=== PATIENT | male | born 1985 | race Caucasian/White ===

== ENCOUNTER 2016-06-04 06:09 | Emergency (ER) | payer OTHER ==
[~2016-06-04] VITALS: Ht 180.3 cm; Wt 109.0 kg
[~2016-06-04 06:09] MED LIST: AMO500 PO; CIPR500T4 PO; IBUP-1542 PO
[2016-06-04 06:10] VITALS: Ht 180.3 cm; Wt 109.0 kg
[2016-06-04] MEDS ORDERED: PRED20TA PO (06:54)
[2016-06-04] MEDS ORDERED: PEN500 PO (06:54)
[2016-06-04] MEDS ORDERED: IBUP800T25 PO (06:54)
[2016-06-04] MEDS ORDERED: CEFTRIAXONE 1 GM INJ IM ONE (07:00)
[2016-06-04] MEDS ORDERED: predniSONE 20 MG TAB PO ONE (07:00)
[2016-06-04] MEDS ORDERED: LIDOCAINE 1% (MDV) 20 ML INJ SC ONE (07:00)
[2016-06-04] MEDS ORDERED: IBUPROFEN 800 MG TAB PO ONE (07:00)
--- NOTE | 2016-06-04 10:29 | ERD ---
DATE OF SERVICE: HISTORY OF PRESENT ILLNESS: The patient is a 30-year-old male coming in complaining of a sore throa t. Patient states he has had a sore throat with a fever for the last 3 days. He has taken DayQuil, Nyquil and Advil. He has had no cough, no runny nose. He states that he has no chest pain or shor tness of breath. Denies any headaches or neck stiffness. PAST MEDICAL HISTORY: Denies. ALLERGIES: DENIES ALLERGIES TO MEDICATIONS. SURGICAL HISTORY: Denies. SOCIAL HISTORY: Smokes 6 cigarettes a day. Drug use denies. Alcohol abuse. REVIEW OF SYSTEMS: A 12-point review of systems was done. Refer to HPI for positives, all other sy stems negative. PHYSICAL EXAMINATION VITAL SIGNS: Temperature is 98.5, pulse 99, blood pressure is 146/97, respiratory rate 18, O2 satur ation 97% on room air. Pain intensity is 7/10. GENERAL: The patient is well-appearing, well-nourished, no acute distress. HEENT: Atraumatic. Conjunctivae are pink. Pupils equal, round, and reactive to light. There is no s cleral icterus. The patient has erythematous tonsils bilaterally with mild exudate. Uvula is midli ne. There is no unilateral posterior fullness noted to the posterior oropharynx. Patient has posit asima cervical lymphadenopathy. TMs are within normal limits. No erythema, edema or bulging. NECK: C-spine is soft and supple. There is no meningismus. There is no cervical lymphadenopathy. No JVD. No bruits. No goiter. Normal nuchal rigidity. CHEST: Clear to auscultation bilaterally. There are no rales, wheezes or rhonchi. HEART: Regular rate and rhythm. No murmurs, clicks, rubs or gallops. No S3 or S4. ABDOMEN: Soft, nontender and nondistended. Good bowel sounds. No rebound or guarding. No gross mona tonitis. No gross organomegaly or masses. No Aaron sign or McBurney point tenderness. SKIN: There is no apparent rash or petechia. The skin is warm and dry. EMERGENCY ROOM COURSE: The patient was given IM injection of Rocephin in the ER. The patient was a lso given 60 mg of prednisone. DIAGNOSES: 1. Sore throat. 2. Documented fever at home. MEDICAL DECISION MAKING: I have low suspicion for peritonsillar retropharyngeal abscess. The patie nt's exam was not concerning. I have low suspicion for meningitis or sepsis, low suspicion for pneu monia, low suspicion for acute abdominal etiology. Patient will be treated with antibiotics and giv en strict ER precautions. DISCHARGE DISPOSITION: The patient is discharged stable. Patient given a prescription for predniso ne and penicillin and told to follow up with primary care within 1 to 2 days for reevaluation. Shyann ent was told if symptoms progress or worsen to return to the ER. All other questions answered at ti me of discharge. Discharge summary given at the time of departure. Patient understood and complied with plan. Dictated By: LORETTA SMITH PA for RENEE OROZCO/HENRI Conf#: [id number] DID#: [id number]
== END 2016-06-04 07:24 | disposition home or self-care (01) ==
LOC: FTE 06:09
DX: J02.9 Acute pharyngitis, unspecified (principal); F17.210 Nicotine dependence, cigarettes, uncomplicated; R50.9 Fever, unspecified
CPT/HCPCS: 96372; J0696; J7512; Z7502; Z7610

== ENCOUNTER 2017-04-30 10:02 | Emergency (ER) | payer OTHER ==
[~2017-04-30] VITALS: Ht 180.3 cm; Wt 113.3 kg
[~2017-04-30 10:02] MED LIST changes: -AMO500 PO; +AMOX500C2 PO; +IBUP800T25 PO; +PENI500T PO; +PRED20TA PO
[2017-04-30 10:03] VITALS: Ht 180.3 cm; Wt 113.3 kg
[2017-04-30] MEDS ORDERED: OPHTHALMIC IRRIG SOLUTION 120 ML LEFT EYE ONE (11:30)
[2017-04-30] MEDS ORDERED: ACET1TAB40 PO (12:11)
[2017-04-30] MEDS ORDERED: ERYT1OIN6 OP (12:11)
--- NOTE | 2017-04-30 12:19 | ERD ---
ER Documentation Chief Complaint Chief Complaint left eye pain/redness/drainage x this AM. UKN cause HPI This 31-year-old male complains sudden onset of pain in his left upper eyelid and eye this morning. Started while washing his face and cleaning in the bathroom. He is sensation of foreign body underneath his left eyelid. Denies contact lens use, visual changes or visual deficits or discharge. Denies use of machinery additional inciting event such as when her known potential foreign body. ROS All systems reviewed and are negative except as per history of present illness. Medications Home Meds Active Scripts Acetaminophen with Codeine (Acetaminophen-Cod #3 Tablet) 1 Each Tablet, 1 TAB PO Q6H Y for PAIN, #10 TAB Prov:SUZE BRIDGES MD 04/30/17 Erythromycin Base (Erythromycin) 1 Gm Oint...g., 1 GM OP QID for 7 Days Prov:SUZE BRIDGES MD 04/30/17 Prednisone* (Prednisone*) 20 Mg Tab, 40 MG PO DAILY for 4 Days, TAB Prov:AKIRA SMITH PA-C 06/04/16 Penicillin V Potassium* (Penicillin V K*) 500 Mg Tab, 500 MG PO BID for 10 Days , TAB Prov:AKIRA SMITH PA-C 06/04/16 Ibuprofen* (Motrin*) 800 Mg Tab, 800 MG PO Q6H Y for PAIN AND OR ELEVATED TEMP, #30 TAB Prov:AKIRA SMITH PA-C 06/04/16 Ciprofloxacin Hcl* (Ciprofloxacin Hcl*) 500 Mg Tablet, 500 MG PO BID for 10 Days , TAB Prov:ADIEL TOVAR PA-C 10/30/15 Ibuprofen* (Motrin*) 600 Mg Tab, 600 MG PO Q6, #15 TAB Prov:SUZE BRIDGES MD 10/06/15 Amoxicillin* (Amoxicillin*) 500 Mg Cap, 500 MG PO TID for 10 Days, CAP Prov:SUZE BRIDGES MD 10/06/15 Reported Medications [none] No Conflict Check 06/16/12 Allergies Allergies: Coded Allergies: No Known Allergy (Unverified , 04/30/17) PMhx/Soc Medical and Surgical Hx: pt denies Medical Hx, pt denies Surgical Hx History of Surgery: No Anesthesia Reaction: No Hx Neurological Disorder: No Hx Respiratory Disorders: No Hx Cardiac Disorders: No Hx Psychiatric Problems: No Hx Miscellaneous Medical Probl: No Hx Alcohol Use: No Hx Substance Use: No Hx Tobacco Use: Yes (8/day ) Smoking Status: Current every day smoker Physical Exam Vitals Vital Signs Date Time Temp Pulse Resp B/P Pulse Ox O2 Delivery O2 Flow Rate FiO2 04/30/17 10:03 97.9 85 18 134/89 98 Physical Exam Const: [] Alert, uncomfortable, [id number]. Head: Atraumatic Eyes: Some hyperemia of the left upper eye. Fluorescein test shows possible minimal uptake at 12:00 on the sclera but no dendritic lesions or obvious ulcers or abrasions. Visual acuity is normal bilaterally. ENT: Normal External Ears, Nose and Mouth. Neck: Full range of motion..~ No meningismus. Resp: Clear to auscultation bilaterally Cardio: Regular rate and rhythm, no murmurs Abd: Soft, non tender, non distended. Normal bowel sounds Skin: No petechiae or rashes Back: No midline or flank tenderness Ext: No cyanosis, or edema Neur: Awake and alert Psych: Normal Mood and Affect Results 24 hrs Current Medications Medications (Trade) Dose Ordered Sig/Yahir Route PRN Reason Start Time Stop Time Status Last Admin Dose Admin Irrigating Solution (Eye Wash) 1 applic ONCE ONCE LEFT EYE 04/30/17 11:30 04/30/17 11:31 DC Procedures/MDM Patient had relief with tetracaine drops. I was irrigated. Patient has persistent burning sensation in the left upper sclera. There is no foreign bodies or abnormalities on serial exam. Patient has left upper eyelid scleral burning of uncertain etiology without visualized foreign body or significant injury. History suggests possible chemical irritation possibly some some soap or something related to the patient washing his face. I am recommending ophthalmology evaluation today or tomorrow. There is no signs or symptoms to suggest globe rupture, foreign body, optic neuritis, retinal artery ischemia, orbital cellulitis cellulitis. Patient otherwise return to the ER for new or worsening symptoms otherwise ophthalmology as directed. Departure Diagnosis: Primary Impression: Eye problem Condition: Stable Patient Instructions: Conjunctivitis Caused by Irritation Referrals: [facility] Hours: Mon - Fri 9:00 AM - 5:00 PM Additional Instructions: Suspect possible chemical irritation. No evidence abnormality noted today. See his mental health coordinator today this week for further evaluation and treatment. Recheck otherwise for fevers, new symptoms. SUZE BRIDGES MD Apr 30, 2017 12:19
== END 2017-04-30 12:40 | disposition home or self-care (01) ==
LOC: FTE 10:02
DX: H57.12 Ocular pain, left eye (principal); F17.210 Nicotine dependence, cigarettes, uncomplicated
CPT/HCPCS: Z7502; Z7610; 99284

== ENCOUNTER 2018-12-10 09:33 | Emergency (ER) | payer OTHER ==
[~2018-12-10] VITALS: Ht 180.3 cm; Wt 110.0 kg
[~2018-12-10 09:33] MED LIST changes: +ACET1TAB40 PO; +ERYT1OIN6 OP; -IBUP800T25 PO; +IBUP800T48 PO; +ONDA4TAB14 PO; +OXYC-279 PO
[2018-12-10 09:36] VITALS: BP 133/94; PULSE 96; RESP 24; Ht 180.3 cm; Wt 110.0 kg
[2018-12-10] MEDS ORDERED: SOD CHLORIDE 0.9% 1,000 ML IV STA (09:47)
[2018-12-10] MEDS ORDERED: KETOROLAC 30 MG INJ IV STA (09:47)
[2018-12-10] MEDS ORDERED: morphine 4 MG/ML VIAL IV STA (09:47)
[2018-12-10] MEDS ORDERED: ONDANSETRON 4 MG INJ IV STA (09:47)
[2018-12-10] MEDS ORDERED: HYDROmorphONE 2 MG/ML SYG IV STA (10:14)
--- NOTE | 2018-12-10 11:58 | ERD ---
ER Documentation Chief Complaint Chief Complaint LEFT FLANK PAIN HPI Patient is a 33-year-old male who presents with severe left-sided flank pain that began today with associated nausea and vomiting. He does have a history of kidney stones and this feels similar. He denies any dysuria hematuria or frequency. No fevers. Has not taken any medications for his symptoms. ROS All systems reviewed and are negative except as per history of present illness. Medications Home Meds Active Scripts Ondansetron (Ondansetron Odt) 4 Mg Tab.rapdis, 4 MG PO Q6H PRN for NAUSEA AND/OR VOMITING, #20 TAB Prov:JIN ALATORRE PA-C 12/10/18 Oxycodone HCl/Acetaminophen (Percocet 5-325 mg Tablet) 1 Each Tablet, 1 EACH PO Q6, #20 TAB Prov:JIN ALATORRE PA-C 12/10/18 Acetaminophen with Codeine (Acetaminophen-Cod #3 Tablet) 1 Each Tablet, 1 TAB PO Q6H PRN for PAIN, #10 TAB Prov:SUZE BRIDGES MD 04/30/17 Erythromycin Base (Erythromycin) 1 Gm Oint...g., 1 GM OP QID for 7 Days Prov:SUZE BRIDGES MD 04/30/17 Prednisone* (Prednisone*) 20 Mg Tab, 40 MG PO DAILY for 4 Days, TAB Prov:AKIRA SMITH PA-C 06/04/16 Penicillin V Potassium* (Penicillin V K*) 500 Mg Tab, 500 MG PO BID for 10 Days, TAB Prov:AKIRA SMITH PA-C 06/04/16 Ibuprofen* (Motrin*) 800 Mg Tab, 800 MG PO Q6H PRN for PAIN AND OR ELEVATED TEMP, #30 TAB Prov:AKIRA SMITH PA-C 06/04/16 Ciprofloxacin Hcl* (Ciprofloxacin Hcl*) 500 Mg Tablet, 500 MG PO BID for 10 Days, TAB Prov:ADIEL TOVAR PA-C 10/30/15 Ibuprofen* (Motrin*) 600 Mg Tab, 600 MG PO Q6, #15 TAB Prov:SUZE BRIDGES MD 10/06/15 Amoxicillin* (Amoxicillin*) 500 Mg Cap, 500 MG PO TID for 10 Days, CAP Prov:SUZE BRIDGES MD 10/06/15 Reported Medications [none] No Conflict Check 06/16/12 Allergies Allergies: Coded Allergies: No Known Allergy (Unverified , 04/30/17) PMhx/Soc Medical and Surgical Hx: pt denies Medical Hx, pt denies Surgical Hx History of Surgery: No Anesthesia Reaction: No Hx Neurological Disorder: No Hx Respiratory Disorders: No Hx Cardiac Disorders: No Hx Psychiatric Problems: No Hx Miscellaneous Medical Probl: No Hx Alcohol Use: Yes Hx Substance Use: No Hx Tobacco Use: No (STOPPED LAST YEAR) Smoking Status: Former smoker FmHx Family History: No diabetes Physical Exam Vitals Vital Signs Date Temp Pulse Resp B/P (MAP) Pulse Ox O2 O2 Flow FiO2 Time Delivery Rate 12/10/18 97.2 96 24 133/94 97 09:36 (107) Physical Exam INITIAL VITAL SIGNS: Reviewed by me GENERAL: Awake, alert and oriented x 4, well appearing, nontoxic, speaking in full sentences. Moderate distress secondary to pain HEAD: Atraumatic NECK: Supple. No masses. Full range of motion. No meningismus. No midline tenderness. RESPIRATORY: Clear to auscultation bilaterally. Symmetric chest wall rise. No wheezing or rales. No accessory muscle use. CV: Regular rate and rhythm. No murmurs, rubs, or gallops. ABDOMEN: Soft, non-distended. Nontender. Negative [place]. Negative McBurneys point tenderness. Left sided CVA tenderness. No guarding. No rebound. Result Diagram: 12/10/18 0955 12/10/18 0955 Results 24 hrs Laboratory Tests Test 12/10/18 09:55 White Blood Count 9.4 10^3/ul Red Blood Count 4.92 10^6/ul Hemoglobin 15.8 g/dl Hematocrit 45.6 % Mean Corpuscular Volume 92.7 fl Mean Corpuscular Hemoglobin 32.1 pg Mean Corpuscular Hemoglobin Concent 34.6 g/dl Red Cell Distribution Width 12.0 % Platelet Count 273 10^3/UL Mean Platelet Volume 9.5 fl Immature Granulocytes % 0.400 % Neutrophils % 62.2 % Lymphocytes % 32.0 % Monocytes % 4.7 % Eosinophils % 0.4 % Basophils % 0.3 % Nucleated Red Blood Cells % 0.0 /100WBC Immature Granulocytes # 0.040 10^3/ul Neutrophils # 5.9 10^3/ul Lymphocytes # 3.0 10^3/ul Monocytes # 0.4 10^3/ul Eosinophils # 0.0 10^3/ul Basophils # 0.0 10^3/ul Nucleated Red Blood Cells # 0.0 10^3/ul Urine Color YELLOW Urine Clarity SLIGHTLY CLOUDY Urine pH 7.0 Urine Specific [place] 1.021 Urine Ketones 2+ mg/dL Urine Nitrite NEGATIVE mg/dL Urine Bilirubin NEGATIVE mg/dL Urine Urobilinogen NEGATIVE mg/dL Urine Leukocyte Esterase NEGATIVE [place]/ul Urine Microscopic RBC > 182 /HPF Urine Microscopic WBC 11 /HPF Urine Mucus FEW /HPF Urine Hemoglobin 3+ mg/dL Urine Glucose NEGATIVE mg/dL Urine Total Protein 1+ mg/dl Sodium Level 146 mmol/L Potassium Level 4.6 mmol/L Chloride Level 103 mmol/L Carbon Dioxide Level 29 mmol/L Anion Gap 14 Blood Urea Nitrogen 22 mg/dl Creatinine 1.07 mg/dl Est Glomerular Filtrat Rate mL/min > 60 mL/min Glucose Level 143 mg/dl Calcium Level 10.4 mg/dl Total Bilirubin 0.7 mg/dl Direct Bilirubin 0.00 mg/dl Indirect Bilirubin 0.7 mg/dl Aspartate Amino Transf (AST/SGOT) 46 IU/L Alanine Aminotransferase (ALT/SGPT) 95 IU/L Alkaline Phosphatase 82 IU/L Total Protein 8.2 g/dl Albumin 5.0 g/dl Globulin 3.20 g/dl Albumin/Globulin Ratio 1.56 Lipase 54 U/L Current Medications Medications Dose Sig/Yahir Start Time Status Last (Trade) Ordered Route PRN Stop Time Admin Dose Reason Admin Sodium 1,000 ml @ Q1H STAT 12/10/18 DC 12/10/18 Chloride 1,000 mls/hr IV 09:47 09:56 12/10/18 10:46 Morphine 4 mg ONCE STAT 12/10/18 DC 12/10/18 Sulfate IV 09:47 09:56 (morphine) 12/10/18 09:48 Ondansetron 4 mg ONCE STAT 12/10/18 DC 12/10/18 HCl (Zofran IV 09:47 09:56 Inj) 12/10/18 09:48 Ketorolac 30 mg ONCE STAT 12/10/18 DC 12/10/18 Tromethamine IV 09:47 10:03 (Toradol) 12/10/18 09:48 1 mg ONCE STAT 12/10/18 DC 12/10/18 Hydromorphone IV 10:14 10:17 HCl 12/10/18 10:15 (Dilaudid) Procedures/MDM The differential diagnosis includes but is not limited to appendicitis, cholelithiasis, cholecystitis, pancreatitis, hepatitis, gastritis, peptic ulcer disease, bowel obstruction, diverticulitis, renal disease including stones, torsion, AAA, pyelonephritis, and others. Findings consistent with renal colic. He does have a 3 mm stone on the left side. He felt much better after IV fluids, Toradol, morphine, and Dilaudid. Discharged with Zofranand percocet. Patient counseled regarding my diagnostic impression and care plan. Prior to discharge all questions answered. Pt agrees with treatment plan and understands strict return precautions. Pt is instructed to follow up with primary care provider within 24-48 hours. Precautionary instructions provided including instructions to return to the ER if not improving or for any worsening or changing symptoms or concerns. Departure Diagnosis: Primary Impression: Renal colic Condition: Stable Patient Instructions: Kidney Stone W/ Colic Additional Instructions: Call your primary care doctor TOMORROW for an appointment during the next 1-2 days.See the doctor sooner or return here if your condition worsens before your appointment time. JIN ALATORRE PA-C Dec 10, 2018 11:58
== END 2018-12-10 12:02 | disposition home or self-care (01) ==
LOC: FTE 09:33
DX: N23 Unspecified renal colic (principal); Z87.891 Personal history of nicotine dependence
CPT/HCPCS: 36415; 74176; 80053; 81001; 83690; 85025; 96361; 96374; 96375; J1170; J1885; J2270; J2405; J7030; Z7502